=== PATIENT | male | born 1960 | race Two or more races ===

== ENCOUNTER 2016-10-10 09:48 | Inpatient (IN) | payer OTHER ==
[~2016-10-10] VITALS: Ht 170.2 cm; Wt 93.0 kg
[2016-10-10] VITALS (13 sets, daily range): BP systolic 111–149; BP diastolic 73–93; PULSE 56–70; RESP 12–26; Ht 170.2 cm; Wt 93.0 kg
[~2016-10-10 09:48] MED LIST: BUPIVACAINE 0.25% (MPF) 30 ML INJ INJ ONE; SUCCINYLCHOLINE CHLORIDE 100 MG/5 ML SYG IV ONE
[2016-10-10] MEDS ORDERED: CEFAZOLIN 2 GM/50 ML (PMX) 50 ML IVPB ONE (10:30)
[2016-10-10] MEDS ORDERED: SOD CHLORIDE 0.9% 1,000 ML IV ONE (10:30)
[2016-10-10] MEDS ORDERED: ASC500 PO (12:08)
[2016-10-10] MEDS ORDERED: AZAT50TA24 PO (12:08)
[2016-10-10] MEDS ORDERED: [UNRECOGNIZED DRUG - CODE] PO (12:08)
[2016-10-10] MEDS ORDERED: BALSALAZIDE PO (12:08)
[2016-10-10] MEDS ORDERED: BUDE9TAB PO (12:08)
[2016-10-10] MEDS ORDERED: LOSA50TA6 PO (12:08)
[2016-10-10] MEDS ORDERED: ATOR40TA68 PO (12:08)
[2016-10-10] MEDS ORDERED: PRED5 PO (12:08)
[2016-10-10] MEDS ORDERED: FENTAnyl 50 MCG/ML VIAL ONE (13:47)
[2016-10-10] MEDS ORDERED: PROPOFOL 20 ML ONE (14:06)
[2016-10-10] MEDS ORDERED: BUPIVACAINE 0.25% (MPF) 30 ML INJ ONE (14:06)
[2016-10-10] MEDS ORDERED: NEOSTIGMINE 3 MG/3 ML SYRINGE ONE (14:06)
[2016-10-10] MEDS ORDERED: ROCURONIUM 50 MG INJ ONE (14:06)
[2016-10-10] MEDS ORDERED: GLYCOPYRROLATE 0.4 MG INJ ONE (14:06)
[2016-10-10] MEDS ORDERED: CEFAZOLIN 1 GM INJ ONE (14:06)
[2016-10-10] MEDS ORDERED: LIDOCAINE 2% (SDV) 5 ML INJ ONE (14:06)
[2016-10-10] MEDS ORDERED: ONDANSETRON 4 MG INJ IV PRN ×2 (14:30→23:30)
[2016-10-10] MEDS ORDERED: MEPERIDINE 25 MG INJ IV PRN (14:30)
[2016-10-10] MEDS ORDERED: DIPHENHYDRAMINE 50 MG INJ IV PRN (14:30)
[2016-10-10] MEDS ORDERED: METOCLOPRAMIDE 10 MG INJ IV PRN (14:30)
[2016-10-10] MEDS ORDERED: FENTAnyl 50 MCG/ML VIAL IV PRN (14:30)
[2016-10-10] MEDS ORDERED: HYDROmorphONE (0.2 MG/ML) 10ML SYG IV PRN ×2 (14:30)
[2016-10-10] MEDS ORDERED: SUGAMMADEX SODIUM 200 MG/2 ML VIAL IV ONE (14:50)
--- NOTE | 2016-10-10 14:58 | OPR ---
Date/Time of Note Date/Time of Note DATE: 10/10/16 TIME: 14:52 Operative Report Procedure Date: Oct 10, 2016 Preoperative Diagnosis grade III internal hemorrhoids and external hemorrhoids Postoperative Diagnosis same Operation Performed 1. proctoplasty for prolapse of mucosal membrane cpt code 91382 2. ligation of internal hemorrhoids multiple procedures cpt code 97961 3. rigid sigmoidoscopy Surgeon: Sarah JOYCE Anesthesia Type: general Estimated Blood Loss: 10 - 50 ml's Specimen: none Grafts/Implants: none Complications: no Indications This is a 56-year-old male with internal/external hemorrhoids. There is symptomatic and cause bleeding and the patient wants surgical repair. Risks alternatives benefits and percent were discussed the patient. Patient's best understanding and consents to the operation. Procedure Description Patient taken to the OR and prepped and draped in usual sterile fashion. Surgical timeout was performed IV antibiotics are given. Rigid proctoscopy performed. There is no evidence of any masses or lesions. Prep was poor. Tissue device is inserted central under ultrasound guidance. Ligation of multiple internal hemorrhoidal arteries were performed in multiple quadrants. This is performed in a [id number] fashion with 2-0 Vicryl. This is performed all the way around circumferentially identifying areas with the hemorrhoidal artery. After the [id number] 2-0 Vicryl the mucosal proctoplasty was performed by running 2-0 Vicryl distally in a longitudinal fashion all the way down to the dentate line. This is then tied to the proximal and and retracted this performed the proctoplasty. This is performed in multiple quadrants all around circumferentially. There is good hemostasis. Therapeutic subcutaneous Marcaine is injected all around the mucosal layer. Dry dressings were applied. Sarah JOYCE Oct 10, 2016 14:58
[2016-10-10] MEDS ORDERED: HYDROCODONE/APAP (5/325) TAB PO ONE (15:00)
[2016-10-10] MEDS: FENTAnyl 50 MCG/ML VIAL IV PRN ×4 (15:09→15:32)
[2016-10-10] MEDS ORDERED: ACETAMINOPHEN 325 MG TAB PO PRN (19:30)
[2016-10-10] MEDS ORDERED: ZOLPIDEM 5 MG TAB PO PRN (19:30)
--- NOTE | 2016-10-10 19:35 | RADRPT ---
Vent Rate: 57 bpm RR Interval: 0 msec SC Interval: 158 msec QRS Duration: 78 msec QT Interval: 408 msec QTC Interval: 397 msec P-R-T Holcomb: 55 - 0 - 29 degrees Sinus bradycardia Otherwise normal ECG Electronically Signed By: Sal Ruiz [id number]
[2016-10-10] MEDS: morphine 2 MG INJ IV PRN (19:54)
[2016-10-10] MEDS: DOCUSATE SODIUM 100 MG CAP PO SCH (20:08)
[2016-10-10] MEDS: HYDROCODONE/APAP (5/325) TAB PO PRN (22:25)
[2016-10-11] MEDS: morphine 2 MG INJ IV PRN ×5 (01:24→14:53)
[2016-10-11] MEDS: HYDROCODONE/APAP (5/325) TAB PO PRN ×3 (02:47→18:09)
[2016-10-11 04:10] VITALS: BP 118/77; RESP 16
[2016-10-11 06:12] LABS: BASOPHILS % 0.3 % (0.0-2.0); EOSINOPHILS % 0.3 % (0.0-7.0); HEMATOCRIT 39.6 % (42.0-52.0); HEMOGLOBIN 12.8 g/dl (14.0-18.0); LYMPHOCYTES # 1.4 10^3/ul (0.8-2.9); LYMPHOCYTES % 14.7 % (15.0-51.0); MEAN CORPUSCULAR HEMOGLOBIN 28.8 pg (29.0-33.0); MEAN CORPUSCULAR HGB CONC 32.3 g/dl (32.0-37.0); MEAN PLATELET VOLUME 10.1 fl (7.4-10.4); MONOCYTE # 0.9 10^3/ul (0.3-0.9); MONOCYTES % 9.1 % (0.0-11.0); NEUTROPHILS % 75.2 % (39.0-77.0); PLATELET COUNT 214 10^3/UL (140-415); RED BLOOD COUNT 4.45 10^6/ul (4.70-6.10); WHITE BLOOD COUNT 9.8 10^3/ul (4.8-10.8)
[2016-10-11 06:21] LABS: ALBUMIN/GLOBULIN RATIO 1.29; BILIRUBIN,INDIRECT 0.6 mg/dl (0-1.1); BILIRUBIN,TOTAL 0.6 mg/dl (0.2-1.3); CALCIUM 9.1 mg/dl (8.4-10.2); CREATININE 0.83 mg/dl (0.61-1.24); POTASSIUM 4.3 mmol/L (3.5-5.1); TOTAL PROTEIN 7.1 g/dl (6.1-8.1)
[2016-10-11 08:05] VITALS: BP 120/77; RESP 16
--- NOTE | 2016-10-11 08:08 | HP ---
DATE OF ADMISSION: 10/10/2016 HISTORY OF PRESENT ILLNESS: The patient is a 56-year-old gentleman history of hypertension, dyslipidemia, ulcerative colitis and both internal and external hemorrhoids. The patient has history of recurrent rectal bleed. The patient was brought into the hospital today and underwent proctoplasty for prolapse of mucosal membrane, as well as ligation of internal hemorrhoids. The patient postoperatively had significant pain and also has urinary retention; therefore, patient is being admitted for further management and evaluation. The patient denies any history of chest pain. No headache, dizziness, syncope. No history of fever or chills. No history of any joint pain, or acute skin rash. The rest of the systems were unremarkable. PAST SURGICAL HISTORY: Status post hernia repair and also left knee meniscal repair. ALLERGIES: NONE. SOCIAL HISTORY: Noncontributory. FAMILY HISTORY: Noncontributory. PHYSICAL EXAMINATION: GENERAL APPEARANCE: Patient, conscious, awake, alert, fairly oriented. VITAL SIGNS: Temperature 97.2, pulse 59, respirations 16, blood pressure 117/73, O2 sat 95 on room air. HEENT: Conjunctivae normal. Oropharynx clear. NECK: Supple. No masses or thyromegaly. CHEST: Fairly clear. CVS: S1, S2 Normal. No murmur. ABDOMEN: Soft, nontender. EXTREMITIES: No leg edema. Pedal pulses palpable. SKIN: Without acute rash. NEUROLOGIC: The patient is awake, alert, fairly oriented, with no gross focal deficits. IMPRESSION: 1. Symptomatic external and internal hemorrhoids, status post surgery. 2. Hypertension. 3. Ulcerative colitis. 4. Dyslipidemia. PLAN: Patient admitted on medical floor. Patient will be started on IV fluids, Colace, Thida, Tylenol, and IV morphine for pain control. Patient's last blood pressure was only 117/73. We will hold off on his oral medication. Patient will have a bladder ultrasound and if patient has urinary retention, he will undergo in and out. Reconciled medication list, do not match with what the patient is reporting he takes. For now I will just monitor him with symptomatic treatment and if patient does well, he will be discharged home tomorrow. We will do a CBC and complete metabolic panel, tomorrow. If patient gets recurrent urinary tension, then we will also obtain a urology consultation. Dictated By: Agustin Mcknight MD /yari/nick /Document#: [id number]
[2016-10-11] MEDS: DOCUSATE SODIUM 100 MG CAP PO SCH ×2 (09:35→20:38)
[2016-10-11 14:38] VITALS: BP 109/66; RESP 18
--- NOTE | 2016-10-11 16:34 | PN ---
Date/Time of Note Date/Time of Note DATE: 10/11/16 TIME: 16:32 Assessment/Plan VTE Prophylaxis VTE Prophylaxis Intervention: SCD's Lines/Catheters IV Catheter Type (from Nrsg): Saline Lock Urinary Cath still in place: Yes Reason Cath still needed: urinary retention Assessment/Plan Chief Complaint/Hosp Course s/p hemorrhoid surgery with THD with urinary retention and pain Problems: Assessment/Plan pain with urinary retention pain management Subjective 24 Hr Interval Summary Free Text/Dictation pain after surgery with dysuria and urinary retention diggs placed Exam/Review of Systems Vital Signs Vitals Vital Signs Date Time Temp Pulse Resp B/P Pulse Ox O2 Delivery O2 Flow Rate FiO2 10/11/16 14:38 98.4 67 18 109/66 97 10/10/16 15:54 Room Air 10/10/16 15:26 2.0 Intake and Output 10/10/16 10/10/16 10/11/16 15:00 23:00 07:00 Intake Total 1000 ml 840 ml Output Total 5 ml 700 ml Balance 995 ml 140 ml Exam nonspecific anal exam deferred Results Result Diagram: 10/11/16 0530 10/11/16 0536 Results 24 hrs Laboratory Tests Test 10/11/16 05:30 10/11/16 05:36 White Blood Count 9.8 Red Blood Count 4.45 L Hemoglobin 12.8 L Hematocrit 39.6 L Mean Corpuscular Volume 89.0 Mean Corpuscular Hemoglobin 28.8 L Mean Corpuscular Hemoglobin Concent 32.3 Red Cell Distribution Width 14.0 Platelet Count 214 Mean Platelet Volume 10.1 Neutrophils % 75.2 Lymphocytes % 14.7 L Monocytes % 9.1 Eosinophils % 0.3 Basophils % 0.3 Nucleated Red Blood Cells % 0.0 Neutrophils # (Manual) 7.4 Lymphocytes # 1.4 Monocytes # 0.9 Eosinophils # 0.0 Basophils # 0.0 Nucleated Red Blood Cells # 0.0 Sodium Level 140 Potassium Level 4.3 Chloride Level 100 Carbon Dioxide Level 28 Anion Gap 16 Blood Urea Nitrogen 17 Creatinine 0.83 Glucose Level 102 Calcium Level 9.1 Total Bilirubin 0.6 Direct Bilirubin 0.00 Indirect Bilirubin 0.6 Aspartate Amino Transf (AST/SGOT) 26 Alanine Aminotransferase (ALT/SGPT) 32 Alkaline Phosphatase 36 L Total Protein 7.1 Albumin 4.0 Globulin 3.10 Albumin/Globulin Ratio 1.29 Medications Medications Current Medications Acetaminophen (Tylenol Tab) 650 mg Q4H PRN PO PAIN AND OR ELEVATED TEMP; Start 10/10/16 at 19:30 Acetaminophen/ Hydrocodone Bitart ([place] (5/325)) 1 tab Q4H PRN PO MODERATE PAIN LEVEL 4-6 Last administered on 10/11/16 10:49; Admin Dose 1 TAB; Start at 19:30 Zolpidem Tartrate (Ambien) 5 mg HS PRN PO INSOMNIA Last administered on 02:47; Admin Dose 5 MG; Start 10/10/16 at 19:30 Docusate Sodium (Colace) 200 mg BID PO Last administered on 10/11/16 09:35; Admin Dose 200 MG; Start 10/10/16 at 21:00 Ondansetron HCl (Zofran Inj) 4 mg Q6H PRN IV NAUSEA AND/OR VOMITING; Start at 23:30 Morphine Sulfate (morphine) 2 mg Q2 PRN IV SEVERE PAIN LEVEL 7-10 Last administered on 10/11/16 14:53; Admin Dose 2 MG; Start 10/11/16 at 03:25 Sarah JOYCE Oct 11, 2016 16:34
[2016-10-11] MEDS: HYDROmorphONE 1 MG/ML SYG IV PRN (17:07)
[2016-10-11 19:35] VITALS: BP 123/70; RESP 16
[2016-10-11] MEDS: LIDOCAINE 5% 35 GM OINT TOP PRN (20:40)
[2016-10-12] MEDS: HYDROmorphONE 1 MG/ML SYG IV PRN ×5 (00:56→20:47)
[2016-10-12 02:06] VITALS: BP 114/77; RESP 16
[2016-10-12] MEDS: HYDROCODONE/APAP (5/325) TAB PO PRN ×4 (03:25→19:02)
[2016-10-12 08:00] VITALS: BP 114/74; RESP 21
[2016-10-12] MEDS: DOCUSATE SODIUM 100 MG CAP PO SCH ×2 (08:55→20:46)
[2016-10-12] MEDS: LIDOCAINE 5% 35 GM OINT TOP PRN (08:55)
[2016-10-12 14:00] VITALS: BP 112/70; RESP 21
--- NOTE | 2016-10-12 14:41 | PN ---
Date/Time of Note Date/Time of Note DATE: 10/12/16 TIME: 14:40 Assessment/Plan VTE Prophylaxis VTE Prophylaxis Intervention: SCD's Lines/Catheters IV Catheter Type (from Nrsg): Saline Lock Urinary Cath still in place: No Assessment/Plan Chief Complaint/Hosp Course s/p hemorrhoid surgery with THD with urinary retention and pain Problems: Assessment/Plan doing a little better diggs removed and able to urinate if pain control adequate ok to dc home Subjective 24 Hr Interval Summary Free Text/Dictation doing a little better, diggs removed and able to urinate Exam/Review of Systems Vital Signs Vitals Vital Signs Date Time Temp Pulse Resp B/P Pulse Ox O2 Delivery O2 Flow Rate FiO2 10/12/16 08:00 98.1 100 21 114/74 97 10/10/16 15:54 Room Air 10/10/16 15:26 2.0 Intake and Output 10/11/16 10/11/16 10/12/16 15:00 23:00 07:00 Intake Total 900 ml 850 ml Output Total 2500 ml 2200 ml Balance -1600 ml -1350 ml Exam deferred rectal nonspecific exam Results Result Diagram: 10/11/16 0530 10/11/16 0536 Medications Medications Current Medications Acetaminophen (Tylenol Tab) 650 mg Q4H PRN PO PAIN AND OR ELEVATED TEMP Last administered on 10/11/16 20:38; Admin Dose 650 MG; Start 10/10/16 at 19:30 Acetaminophen/ Hydrocodone Bitart ([place] (5/325)) 1 tab Q4H PRN PO MODERATE PAIN LEVEL 4-6 Last administered on 10/12/16 13:11; Admin Dose 1 TAB; Start at 19:30 Zolpidem Tartrate (Ambien) 5 mg HS PRN PO INSOMNIA Last administered on 02:47; Admin Dose 5 MG; Start 10/10/16 at 19:30 Docusate Sodium (Colace) 200 mg BID PO Last administered on 10/12/16 08:55; Admin Dose 200 MG; Start 10/10/16 at 21:00 Ondansetron HCl (Zofran Inj) 4 mg Q6H PRN IV NAUSEA AND/OR VOMITING; Start at 23:30 Morphine Sulfate (morphine) 2 mg Q2 PRN IV SEVERE PAIN LEVEL 7-10 Last administered on 10/11/16 14:53; Admin Dose 2 MG; Start 10/11/16 at 03:25 Hydromorphone HCl (Dilaudid) 0.5 mg Q2H PRN IV PAIN Last administered on 12:11; Admin Dose 0.5 MG; Start 10/11/16 at 16:30 Lidocaine (Lidocaine 5% Oint) 1 applic TID PRN TOP PAIN Last administered on 08:55; Admin Dose 1 APPLIC; Start 10/11/16 at 17:00 Sarah JOYCE Oct 12, 2016 14:41
--- NOTE | 2016-10-12 17:16 | PN ---
Date/Time of Note Date/Time of Note DATE: 10/12/16 TIME: 17:12 Assessment/Plan VTE Prophylaxis VTE Prophylaxis Intervention: SCD's Lines/Catheters [facility] Saline Lock Urinary Cath still in place: No Assessment/Plan Chief Complaint/Hosp Course Patient continues to have significant amount of pain requiring Dilaudid. Vick catheter was discontinued however patient is unable to void, currently catheter was being reinserted, blood-tinged urine noted in the catheter bag. Problems: Assessment/Plan - Symptomatic external and internal hemorrhoids, status post surgery by Dr. Brambila. - Postoperative urinary retention, continue Vick catheter, start Urecholine. Dr. Alberto is asked to see patient in urology consultation. - Hypertension. - Ulcerative colitis. - Dyslipidemia. Further recommendations based on clinical course. Plan of care discussed with Dr. Mcknight. Exam/Review of Systems Vital Signs Vitals Vital Signs Date Time Temp Pulse Resp B/P Pulse Ox O2 Delivery O2 Flow Rate FiO2 10/12/16 08:00 98.1 100 21 114/74 97 10/10/16 15:54 Room Air 10/10/16 15:26 2.0 Intake and Output 10/11/16 10/11/16 10/12/16 15:00 23:00 07:00 Intake Total 900 ml 850 ml Output Total 2500 ml 2200 ml Balance -1600 ml -1350 ml Exam Constitutional: alert Head: normocephalic Neck: supple Respiratory: normal air movement Cardiovascular: nl pulses Gastrointestinal: soft Genitourinary - Male: other (Vick catheter) Extremities: normal pulses Neurological: nl mental status Results Result Diagram: 10/11/16 0530 10/11/16 0536 Medications Medications Current Medications Acetaminophen (Tylenol Tab) 650 mg Q4H PRN PO PAIN AND OR ELEVATED TEMP Last administered on 10/11/16 20:38; Admin Dose 650 MG; Start 10/10/16 at 19:30 Acetaminophen/ Hydrocodone Bitart ([place] (5/325)) 1 tab Q4H PRN PO MODERATE PAIN LEVEL 4-6 Last administered on 10/12/16 13:11; Admin Dose 1 TAB; Start at 19:30 Zolpidem Tartrate (Ambien) 5 mg HS PRN PO INSOMNIA Last administered on 02:47; Admin Dose 5 MG; Start 10/10/16 at 19:30 Docusate Sodium (Colace) 200 mg BID PO Last administered on 10/12/16 08:55; Admin Dose 200 MG; Start 10/10/16 at 21:00 Ondansetron HCl (Zofran Inj) 4 mg Q6H PRN IV NAUSEA AND/OR VOMITING; Start at 23:30 Morphine Sulfate (morphine) 2 mg Q2 PRN IV SEVERE PAIN LEVEL 7-10 Last administered on 10/11/16 14:53; Admin Dose 2 MG; Start 10/11/16 at 03:25 Hydromorphone HCl (Dilaudid) 0.5 mg Q2H PRN IV PAIN Last administered on 16:43; Admin Dose 0.5 MG; Start 10/11/16 at 16:30 Lidocaine (Lidocaine 5% Oint) 1 applic TID PRN TOP PAIN Last administered on 08:55; Admin Dose 1 APPLIC; Start 10/11/16 at 17:00 JACKIE BAE Oct 12, 2016 17:16
--- NOTE | 2016-10-12 19:54 | CONS ---
Date/Time of Note Date/Time of Note DATE: 10/12/16 TIME: 19:43 Assessment/Plan Assessment/Plan Chief Complaint/Hosp Course Urinary retention postsurgery for hemorrhoids. The retention is secondary to him having pain and not being able to relax to urinate. Also the pain medications may not be helpful as well but he needs to take them. We will try him on Urecholine as well as Flomax and will discontinue the Vick catheter in a.m., check his postvoid residual after each voiding and do straight cath for a PVR of over 300 mL or if he does not urinate for a bladder scan over 500 ml. Problems: Consultation Date/Type/Reason Admit Date/Time Oct 12, 2016 at 16:56 Date of Consultation: Oct 12, 2016 Type of Consultation: Urology Reason for Consultation Urinary retention post hemorrhoidal surgery Referring Provider: LAITH WARREN MD Hx of Present Illness 56-year-old male admitted to the hospital after undergoing hemorrhoidal surgery. The patient was not able to urinate and was having a lot of pain. Prior to his surgery patient denies having any problem urinating , he usually has nocturia 3-4 times a night , during the day he urinates 4-5 times, he describes his urinary stream as regular. Denies any history of gross hematuria he did have an indwelling catheter and when it was removed he was not able to urinate and a new Vick catheter was inserted. Patient states that he has not slept in the past 3 days because of the pain and he is laying on his side most of the time. Constitutional: no complaints Eyes: no complaints ENT: no complaints Respiratory: no complaints Cardiovascular: no complaints Gastrointestinal: other (History of ulcerative colitis) Genitourinary: other (Urinary retention) Musculoskeletal: no complaints Skin: no complaints Neurologic: no complaints Endocrine: no complaints Lymphatic: no complaints Psychological: no complaints Past Medical History Medical History: high cholesterol, hypertension, other (Ulcerative colitis) Past Surgical History Past Surgical Hx: other (Umbilical hernia repair, hemorrhoid surgery) Family History Significant Family History: no pertinent family hx Social History Alcohol Use: other (He drinks 1 scotch with soda 5 times a week) Smoking Status: Never smoker Drug Use: none Exam/Review of Systems Vital Signs Vitals Vital Signs Date Time Temp Pulse Resp B/P Pulse Ox O2 Delivery O2 Flow Rate FiO2 10/12/16 08:00 98.1 100 21 114/74 97 10/10/16 15:54 Room Air 10/10/16 15:26 2.0 Intake and Output 10/11/16 10/11/16 10/12/16 15:00 23:00 07:00 Intake Total 900 ml 850 ml Output Total 2500 ml 2200 ml Balance -1600 ml -1350 ml Exam Constitutional: alert, oriented Psych: no complaints Head: normocephalic Eyes: nl conjunctiva ENMT: nl external ears & nose Neck: non-tender, supple Respiratory: normal air movement Cardiovascular: nl pulses Gastrointestinal: soft Genitourinary - Male: other (Vick catheter in place and draining clear urine, no rectal exam done because of his recent hemorrhoidal surgery) Musculoskeletal: nl extremities to inspection Extremities: No calf tenderness Results Result Diagram: 10/11/16 0530 10/11/16 0536 Medications Medications Current Medications Acetaminophen (Tylenol Tab) 650 mg Q4H PRN PO PAIN AND OR ELEVATED TEMP Last administered on 10/11/16 20:38; Admin Dose 650 MG; Start 10/10/16 at 19:30 Acetaminophen/ Hydrocodone Bitart ([place] (5/325)) 1 tab Q4H PRN PO MODERATE PAIN LEVEL 4-6 Last administered on 10/12/16 19:02; Admin Dose 1 TAB; Start at 19:30 Zolpidem Tartrate (Ambien) 5 mg HS PRN PO INSOMNIA Last administered on 02:47; Admin Dose 5 MG; Start 10/10/16 at 19:30 Docusate Sodium (Colace) 200 mg BID PO Last administered on 10/12/16 08:55; Admin Dose 200 MG; Start 10/10/16 at 21:00 Ondansetron HCl (Zofran Inj) 4 mg Q6H PRN IV NAUSEA AND/OR VOMITING; Start at 23:30 Morphine Sulfate (morphine) 2 mg Q2 PRN IV SEVERE PAIN LEVEL 7-10 Last administered on 10/11/16 14:53; Admin Dose 2 MG; Start 10/11/16 at 03:25 Hydromorphone HCl (Dilaudid) 0.5 mg Q2H PRN IV PAIN Last administered on 8/16/ 17at 16:43; Admin Dose 0.5 MG; Start 10/11/16 at 16:30 Lidocaine (Lidocaine 5% Oint) 1 applic TID PRN TOP PAIN Last administered on t 08:55; Admin Dose 1 APPLIC; Start 10/11/16 at 17:00 Bethanechol Chloride (Urecholine) 10 mg TID PO ; Start 10/12/16 at 21:00 CLAUDIA MCBRIDE MD Oct 12, 2016 19:54
[2016-10-12 20:00] VITALS: BP 107/67; RESP 19
[2016-10-12] MEDS: BETHANECHOL 10 MG TAB PO SCH (20:46)
[2016-10-12] MEDS: TAMSULOSIN (SR) 0.4 MG CAP PO SCH (20:46)
[2016-10-13] MEDS: LIDOCAINE 5% 35 GM OINT TOP PRN ×3 (00:19→18:07)
[2016-10-13 02:00] VITALS: BP 108/73; RESP 20
[2016-10-13] MEDS: HYDROmorphONE 1 MG/ML SYG IV PRN ×5 (02:59→23:58)
[2016-10-13] MEDS: HYDROCODONE/APAP (5/325) TAB PO PRN ×3 (06:35→21:49)
[2016-10-13 07:01] LABS: BASOPHILS % 0.3 % (0.0-2.0); EOSINOPHILS # 0.2 10^3/ul (0.0-0.5); HEMATOCRIT 42.9 % (42.0-52.0); LYMPHOCYTES # 1.7 10^3/ul (0.8-2.9); LYMPHOCYTES % 18.7 % (15.0-51.0); MEAN CORPUSCULAR HGB CONC 32.6 g/dl (32.0-37.0); MEAN CORPUSCULAR VOLUME 88.8 fl (82.0-101.0); MEAN PLATELET VOLUME 10.2 fl (7.4-10.4); MONOCYTE # 0.7 10^3/ul (0.3-0.9); MONOCYTES % 8.4 % (0.0-11.0); NEUTROPHILS % 70.1 % (39.0-77.0); PLATELET COUNT 241 10^3/UL (140-415); RED BLOOD COUNT 4.83 10^6/ul (4.70-6.10); RED CELL DISTRIBUTION WIDTH 13.6 % (11.5-14.5); WHITE BLOOD COUNT 8.8 10^3/ul (4.8-10.8)
[2016-10-13 07:24] LABS: CALCIUM 9.5 mg/dl (8.4-10.2); CREATININE 0.91 mg/dl (0.61-1.24); POTASSIUM 4.1 mmol/L (3.5-5.1)
[2016-10-13 08:09] VITALS: BP 117/67; RESP 20
--- NOTE | 2016-10-13 10:05 | PN ---
Date/Time of Note Date/Time of Note DATE: 10/13/16 TIME: 10:02 Assessment/Plan VTE Prophylaxis VTE Prophylaxis Intervention: SCD's Lines/Catheters IV Catheter Type (from Nrsg): Saline Lock Urinary Cath still in place: No Assessment/Plan Chief Complaint/Hosp Course s/p hemorrhoid surgery with THD with urinary retention and pain Problems: Assessment/Plan urology involved defer to urology for management patient with pain suggest dc with leg bag and removal of diggs in the OR Subjective 24 Hr Interval Summary Free Text/Dictation patient with some urinary retention and pain urology is involved Exam/Review of Systems Vital Signs Vitals Vital Signs Date Time Temp Pulse Resp B/P Pulse Ox O2 Delivery O2 Flow Rate FiO2 10/13/16 08:09 98.9 75 20 117/67 97 10/10/16 15:54 Room Air 10/10/16 15:26 2.0 Intake and Output 10/12/16 10/12/16 10/13/16 15:00 23:00 07:00 Intake Total 1480 ml 1300 ml Output Total 2700 ml 1800 ml Balance -1220 ml -500 ml Results Result Diagram: 10/13/16 0518 10/13/16 0518 Results 24 hrs Laboratory Tests Test 10/13/16 05:18 White Blood Count 8.8 Red Blood Count 4.83 Hemoglobin 14.0 Hematocrit 42.9 Mean Corpuscular Volume 88.8 Mean Corpuscular Hemoglobin 29.0 Mean Corpuscular Hemoglobin Concent 32.6 Red Cell Distribution Width 13.6 Platelet Count 241 Mean Platelet Volume 10.2 Neutrophils % 70.1 Lymphocytes % 18.7 Monocytes % 8.4 Eosinophils % 2.0 Basophils % 0.3 Nucleated Red Blood Cells % 0.0 Neutrophils # (Manual) 6.2 Lymphocytes # 1.7 Monocytes # 0.7 Eosinophils # 0.2 Basophils # 0.0 Nucleated Red Blood Cells # 0.0 Sodium Level 139 Potassium Level 4.1 Chloride Level 97 Carbon Dioxide Level 31 Anion Gap 15 Blood Urea Nitrogen 14 Creatinine 0.91 Glucose Level 102 Calcium Level 9.5 Medications Medications Current Medications Acetaminophen (Tylenol Tab) 650 mg Q4H PRN PO PAIN AND OR ELEVATED TEMP Last administered on 10/11/16t 20:38; Admin Dose 650 MG; Start 10/10/16 at 19:30 Acetaminophen/ Hydrocodone Bitart ([place] (5/325)) 1 tab Q4H PRN PO MODERATE PAIN LEVEL 4-6 Last administered on 10/13/16 06:35; Admin Dose 1 TAB; Start at 19:30 Zolpidem Tartrate (Ambien) 5 mg HS PRN PO INSOMNIA Last administered on 02:47; Admin Dose 5 MG; Start 10/10/16 at 19:30 Docusate Sodium (Colace) 200 mg BID PO Last administered on 10/12/16 20:46; Admin Dose 200 MG; Start 10/10/16 at 21:00 Ondansetron HCl (Zofran Inj) 4 mg Q6H PRN IV NAUSEA AND/OR VOMITING; Start at 23:30 Morphine Sulfate (morphine) 2 mg Q2 PRN IV SEVERE PAIN LEVEL 7-10 Last administered on 10/11/16 14:53; Admin Dose 2 MG; Start 10/11/16 at 03:25 Hydromorphone HCl (Dilaudid) 0.5 mg Q2H PRN IV PAIN Last administered on 02:59; Admin Dose 0.5 MG; Start 10/11/16 at 16:30 Lidocaine (Lidocaine 5% Oint) 1 applic TID PRN TOP PAIN Last administered on 00:19; Admin Dose 1 APPLIC; Start 10/11/16 at 17:00 Bethanechol Chloride (Urecholine) 10 mg TID PO Last administered on 10/12/16 20:46; Admin Dose 10 MG; Start 10/12/16 at 21:00 Tamsulosin HCl (Flomax) 0.4 mg BID PO Last administered on 10/12/16 20:46; Admin Dose 0.4 MG; Start 10/12/16 at 21:00 Sarah JOYCE Oct 13, 2016 10:05
--- NOTE | 2016-10-13 10:16 | PN ---
Date/Time of Note Date/Time of Note DATE: 10/13/16 TIME: 10:07 Assessment/Plan VTE Prophylaxis VTE Prophylaxis Intervention: ambulation, SCD's Lines/Catheters [facility] Saline Lock Urinary Cath still in place: No Assessment/Plan Assessment/Plan 56-year-old male with: 1. Symptomatic external and internal hemorrhoids, status post surgery hemorrhoidectomy by Dr. Brambila, POD#3 Patient doing well postsurgically however having urinary retention followed by urology According to Dr. Brambila, from general surgery standpoint patient can be discharged whenever cleared by urology. 2. Postoperative urinary retention, appreciate recommendations from Dr. Alberto , patient on Flomax and Urecholine. This morning still with ongoing urinary retention, Vick was discontinued 4 hours ago. Follow-up urology recommendation. Patient may be discharged home once he urinates versus being discharged with Vick and leg bag if okay with urology. 4. Ulcerative colitis: Resume home meds at discharge. 5. Dyslipidemia: Resume home meds at discharge 6. Hypertension: Resume losartan at discharge if needed.. Prophylaxis: Patient ambulatory, tolerating p.o. Disposition: Discharge planning depending on neurology recommendations today. Patient may need to go home with a Vick catheter Subjective 24 Hr Interval Summary Free Text/Dictation Patient reports controlled pain, however still having suprapubic tenderness and distention, Vick catheter removed this morning patient has not urinated yet. Urology was consulted overnight. According to records he did have a bowel movement Discussed with Dr. Brambila, from his standpoint patient can be discharged home with or without a Vick with a leg bag depending if he urinates or not and if urology agrees. Exam/Review of Systems Vital Signs Vitals Vital Signs Date Time Temp Pulse Resp B/P Pulse Ox O2 Delivery O2 Flow Rate FiO2 10/13/16 08:09 98.9 75 20 117/67 97 10/10/16 15:54 Room Air 10/10/16 15:26 2.0 Intake and Output 10/12/16 10/12/16 10/13/16 15:00 23:00 07:00 Intake Total 1480 ml 1300 ml Output Total 2700 ml 1800 ml Balance -1220 ml -500 ml Exam Constitutional: alert, oriented, well developed Respiratory: clear to auscultation, normal air movement Cardiovascular: nl pulses, regular rate and rhythm Gastrointestinal: distended (Mildly), soft, tender (Lower abdomen and rectal area) Genitourinary - Male: other (Urinary retention) 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 OFFICER II-XII intact, nl mental status, nl speech, nl strength Results Result Diagram: 10/13/1651710/13/16517 Results 24 hrs Laboratory Tests Test 10/13/16 05:18 White Blood Count 8.8 Red Blood Count 4.83 Hemoglobin 14.0 Hematocrit 42.9 Mean Corpuscular Volume 88.8 Mean Corpuscular Hemoglobin 29.0 Mean Corpuscular Hemoglobin Concent 32.6 Red Cell Distribution Width 13.6 Platelet Count 241 Mean Platelet Volume 10.2 Neutrophils % 70.1 Lymphocytes % 18.7 Monocytes % 8.4 Eosinophils % 2.0 Basophils % 0.3 Nucleated Red Blood Cells % 0.0 Neutrophils # (Manual) 6.2 Lymphocytes # 1.7 Monocytes # 0.7 Eosinophils # 0.2 Basophils # 0.0 Nucleated Red Blood Cells # 0.0 Sodium Level 139 Potassium Level 4.1 Chloride Level 97 Carbon Dioxide Level 31 Anion Gap 15 Blood Urea Nitrogen 14 Creatinine 0.91 Glucose Level 102 Calcium Level 9.5 Medications Medications Current Medications Acetaminophen (Tylenol Tab) 650 mg Q4H PRN PO PAIN AND OR ELEVATED TEMP Last administered on 10/11/16 20:38; Admin Dose 650 MG; Start 10/10/16 at 19:30 Acetaminophen/ Hydrocodone Bitart ([place] (5/325)) 1 tab Q4H PRN PO MODERATE PAIN LEVEL 4-6 Last administered on 10/13/16 06:35; Admin Dose 1 TAB; Start at 19:30 Zolpidem Tartrate (Ambien) 5 mg HS PRN PO INSOMNIA Last administered on 02:47; Admin Dose 5 MG; Start 10/10/16 at 19:30 Docusate Sodium (Colace) 200 mg BID PO Last administered on 10/12/16 20:46; Admin Dose 200 MG; Start 10/10/16 at 21:00 Ondansetron HCl (Zofran Inj) 4 mg Q6H PRN IV NAUSEA AND/OR VOMITING; Start at 23:30 Morphine Sulfate (morphine) 2 mg Q2 PRN IV SEVERE PAIN LEVEL 7-10 Last administered on 10/11/16 14:53; Admin Dose 2 MG; Start 10/11/16 at 03:25 Hydromorphone HCl (Dilaudid) 0.5 mg Q2H PRN IV PAIN Last administered on 02:59; Admin Dose 0.5 MG; Start 10/11/16 at 16:30 Lidocaine (Lidocaine 5% Oint) 1 applic TID PRN TOP PAIN Last administered on 00:19; Admin Dose 1 APPLIC; Start 10/11/16 at 17:00 Bethanechol Chloride (Urecholine) 10 mg TID PO Last administered on 10/12/16 20:46; Admin Dose 10 MG; Start 10/12/16 at 21:00 Tamsulosin HCl (Flomax) 0.4 mg BID PO Last administered on 10/12/16 20:46; Admin Dose 0.4 MG; Start 10/12/16 at 21:00 KELVIN LEBLANC Oct 13, 2016 10:16
[2016-10-13] MEDS: DOCUSATE SODIUM 100 MG CAP PO SCH ×2 (10:33→20:18)
[2016-10-13] MEDS: BETHANECHOL 10 MG TAB PO SCH ×3 (10:33→20:18)
[2016-10-13] MEDS: TAMSULOSIN (SR) 0.4 MG CAP PO SCH ×2 (10:33→20:18)
[2016-10-13 14:30] VITALS: BP 107/67; RESP 20
--- NOTE | 2016-10-13 20:10 | PN ---
Date/Time of Note Date/Time of Note DATE: 10/13/16 TIME: 20:05 Assessment/Plan VTE Prophylaxis VTE Prophylaxis Intervention: ambulation Lines/Catheters IV Catheter Type (from Nrs): Saline Lock Urinary Cath still in place: Yes Reason Cath still needed: urinary retention Assessment/Plan Chief Complaint/Hosp Course Urinary retention postsurgery for hemorrhoids. The retention is secondary to him having pain and not being able to relax to urinate. Also the pain medications may not be helpful as well but he needs to take them. We will try him on Urecholine as well as Flomax the catheter was removed this morning however he was not able to urinate and needed a new Vick catheter. Therefore I recommend that he keeps the catheter in and be discharged home with the Vick catheter and after 1 week he could have the catheter removed by either Dr. Brambila or his primary care physician or if he is referred to a urologist who is contracted with his medical group the urologist could take it out for him Problems: Subjective 24 Hr Interval Summary Constitutional: other (Patient complaining of pain from his hemorrhoid surgery and from not being able to urinate before the reinsertion of the Vick catheter) Eyes: no complaints ENT: no complaints Respiratory: no complaints Cardiovascular: no complaints Gastrointestinal: pain Genitourinary: other (Urinary retention) Musculoskeletal: no complaints Skin: no complaints Neurologic: no complaints Exam/Review of Systems Vital Signs Vitals Vital Signs Date Time Temp Pulse Resp B/P Pulse Ox O2 Delivery O2 Flow Rate FiO2 10/13/16 14:30 98.1 68 20 107/67 97 10/10/16 15:54 Room Air 10/10/16 15:26 2.0 Intake and Output 10/12/16 10/12/16 10/13/16 15:00 23:00 07:00 Intake Total 1480 ml 1300 ml Output Total 2700 ml 1800 ml Balance -1220 ml -500 ml Exam Constitutional: alert, oriented Psych: no complaints Head: normocephalic Eyes: nl conjunctiva ENMT: nl external ears & nose Neck: supple Respiratory: normal air movement Cardiovascular: No edema Gastrointestinal: soft Genitourinary - Male: other (Vick catheter in place and draining clear urine) , No CVA tenderness Extremities: normal pulses, No calf tenderness, No edema Skin: nl turgor Results Result Diagram: 10/13/1618 10/13/16 0518 Results 24 hrs Laboratory Tests Test 10/13/16 05:18 White Blood Count 8.8 Red Blood Count 4.83 Hemoglobin 14.0 Hematocrit 42.9 Mean Corpuscular Volume 88.8 Mean Corpuscular Hemoglobin 29.0 Mean Corpuscular Hemoglobin Concent 32.6 Red Cell Distribution Width 13.6 Platelet Count 241 Mean Platelet Volume 10.2 Neutrophils % 70.1 Lymphocytes % 18.7 Monocytes % 8.4 Eosinophils % 2.0 Basophils % 0.3 Nucleated Red Blood Cells % 0.0 Neutrophils # (Manual) 6.2 Lymphocytes # 1.7 Monocytes # 0.7 Eosinophils # 0.2 Basophils # 0.0 Nucleated Red Blood Cells # 0.0 Sodium Level 139 Potassium Level 4.1 Chloride Level 97 Carbon Dioxide Level 31 Anion Gap 15 Blood Urea Nitrogen 14 Creatinine 0.91 Glucose Level 102 Calcium Level 9.5 Medications Medications Current Medications Acetaminophen (Tylenol Tab) 650 mg Q4H PRN PO PAIN AND OR ELEVATED TEMP Last administered on 10/11/16 20:38; Admin Dose 650 MG; Start 10/10/16 at 19:30 Acetaminophen/ Hydrocodone Bitart ([place] (5/325)) 1 tab Q4H PRN PO MODERATE PAIN LEVEL 4-6 Last administered on 10/13/16 11:12; Admin Dose 1 TAB; Start at 19:30 Zolpidem Tartrate (Ambien) 5 mg HS PRN PO INSOMNIA Last administered on 02:47; Admin Dose 5 MG; Start 10/10/16 at 19:30 Docusate Sodium (Colace) 200 mg BID PO Last administered on 10/13/16 10:33; Admin Dose 200 MG; Start 10/10/16 at 21:00 Ondansetron HCl (Zofran Inj) 4 mg Q6H PRN IV NAUSEA AND/OR VOMITING; Start at 23:30 Morphine Sulfate (morphine) 2 mg Q2 PRN IV SEVERE PAIN LEVEL 7-10 Last administered on 10/11/16 14:53; Admin Dose 2 MG; Start 10/11/16 at 03:25 Hydromorphone HCl (Dilaudid) 0.5 mg Q2H PRN IV PAIN Last administered on 18:07; Admin Dose 0.5 MG; Start 10/11/16 at 16:30 Lidocaine (Lidocaine 5% Oint) 1 applic TID PRN TOP PAIN Last administered on 18:07; Admin Dose 1 APPLIC; Start 10/11/16 at 17:00 Bethanechol Chloride (Urecholine) 10 mg TID PO Last administered on 10/13/16 13:27; Admin Dose 10 MG; Start 10/12/16 at 21:00 Tamsulosin HCl (Flomax) 0.4 mg BID PO Last administered on 10/13/16 10:33; Admin Dose 0.4 MG; Start 10/12/16 at 21:00 CLAUDIA MCBRIDE MD Oct 13, 2016 20:10
[2016-10-13 20:30] VITALS: BP 105/66; RESP 21
[2016-10-14] MEDS: HYDROmorphONE 1 MG/ML SYG IV PRN ×3 (02:14→08:14)
[2016-10-14 02:33] VITALS: BP 128/77; RESP 22
[2016-10-14 07:20] VITALS: BP 120/81; RESP 16
[2016-10-14] MEDS: LIDOCAINE 5% 35 GM OINT TOP PRN (08:11)
[2016-10-14] MEDS: TAMSULOSIN (SR) 0.4 MG CAP PO SCH (08:14)
[2016-10-14] MEDS: BETHANECHOL 10 MG TAB PO SCH ×2 (08:16→13:27)
[2016-10-14] MEDS: DOCUSATE SODIUM 100 MG CAP PO SCH (08:18)
--- NOTE | 2016-10-14 09:46 | PN ---
Date/Time of Note Date/Time of Note DATE: 10/14/16 TIME: 09:40 Assessment/Plan VTE Prophylaxis VTE Prophylaxis Intervention: SCD's Lines/Catheters IV Catheter Type (from Nrsg): Saline Lock Urinary Cath still in place: Yes Reason Cath still needed: urinary retention Assessment/Plan Assessment/Plan 56-year-old male with: 1. Symptomatic external and internal hemorrhoids, status post surgery hemorrhoidectomy by Dr. Brambila, POD#4 Patient doing well postsurgically however having urinary retention, s/p Vick catheter and patient to go home with Vick and leg bag Follow up with Dr Romero on Monday. 2. Postoperative urinary retention, appreciate recommendations from Dr. Alberto , patient on Flomax and Urecholine and yo go home with Vick and Flomax Patient to be discharged home with Vick and leg bag 4. Ulcerative colitis: Resume home meds at discharge. 5. Dyslipidemia: Resume home meds at discharge 6. Hypertension: Resume home meds Prophylaxis: Patient ambulatory, tolerating p.o. Disposition: Discharge home with Home Health and Vick w/ leg bag and follow up with Dr Brambila nesxt week Subjective 24 Hr Interval Summary Free Text/Dictation Patient complains of perirectal pain, which is expected post hemorrhoid surgery , he was told by surgery to last at least a week. Appreciate recommendation from Dr. Suzan Burk patient will be going home with Vick catheter and a leg bag. He will follow-up with Dr. cherry next week and referred to urology outpatient also. Discharge home today with home health Exam/Review of Systems Vital Signs Vitals Vital Signs Date Time Temp Pulse Resp B/P Pulse Ox O2 Delivery O2 Flow Rate FiO2 10/14/16 07:20 98.8 74 16 120/81 96 10/10/16 15:54 Room Air 10/10/16 15:26 2.0 Intake and Output 10/13/16 10/13/16 10/14/16 15:00 23:00 07:00 Intake Total 1100 ml 1080 ml Output Total 1100 ml 2800 ml Balance 0 ml -1720 ml Exam Constitutional: alert, oriented, well developed Respiratory: clear to auscultation, normal air movement Cardiovascular: nl pulses, regular rate and rhythm Gastrointestinal: soft, tender (Perirectally post hemorrhoidectomy ) Musculoskeletal: nl extremities to inspection Extremities: normal pulses 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, nl mental status, nl speech, nl strength Results Result Diagram: 10/13/1651710/13/16517 Results 24 hrs Laboratory Tests Test 10/14/16 06:33 Lab Scanned Report REFERENCE LAB Medications Medications Current Medications Acetaminophen (Tylenol Tab) 650 mg Q4H PRN PO PAIN AND OR ELEVATED TEMP Last administered on 10/11/16 20:38; Admin Dose 650 MG; Start 10/10/16 at 19:30 Acetaminophen/ Hydrocodone Bitart ([place] (5/325)) 1 tab Q4H PRN PO MODERATE PAIN LEVEL 4-6 Last administered on 10/13/16 21:49; Admin Dose 1 TAB; Start at 19:30 Zolpidem Tartrate (Ambien) 5 mg HS PRN PO INSOMNIA Last administered on 02:47; Admin Dose 5 MG; Start 10/10/16 at 19:30 Docusate Sodium (Colace) 200 mg BID PO Last administered on 10/14/16 08:18; Admin Dose 200 MG; Start 10/10/16 at 21:00 Ondansetron HCl (Zofran Inj) 4 mg Q6H PRN IV NAUSEA AND/OR VOMITING; Start at 23:30 Morphine Sulfate (morphine) 2 mg Q2 PRN IV SEVERE PAIN LEVEL 7-10 Last administered on 10/11/16 14:53; Admin Dose 2 MG; Start 10/11/16 at 03:25 Hydromorphone HCl (Dilaudid) 0.5 mg Q2H PRN IV PAIN Last administered on 08:14; Admin Dose 0.5 MG; Start 10/11/16 at 16:30 Lidocaine (Lidocaine 5% Oint) 1 applic TID PRN TOP PAIN Last administered on 08:11; Admin Dose 1 APPLIC; Start 10/11/16 at 17:00 Bethanechol Chloride (Urecholine) 10 mg TID PO Last administered on 10/14/16 08:16; Admin Dose 10 MG; Start 10/12/16 at 21:00 Tamsulosin HCl (Flomax) 0.4 mg BID PO Last administered on 10/14/16 08:14; Admin Dose 0.4 MG; Start 10/12/16 at 21:00 KELVIN LEBLANC Oct 14, 2016 09:46
[2016-10-14] MEDS: morphine 2 MG INJ IV PRN (09:56)
--- NOTE | 2016-10-14 09:56 | PN ---
Date/Time of Note Date/Time of Note DATE: 10/14/16 TIME: 09:55 Assessment/Plan VTE Prophylaxis VTE Prophylaxis Intervention: SCD's Lines/Catheters IV Catheter Type (from Nrsg): Saline Lock Urinary Cath still in place: Yes Reason Cath still needed: urinary retention Assessment/Plan Chief Complaint/Hosp Course s/p hemorrhoid surgery with THD with urinary retention and pain Problems: Assessment/Plan dc home today with diggs leg bag and dc diggs on monday in the office Subjective 24 Hr Interval Summary Free Text/Dictation patient with diggs with some difficulty with urination Exam/Review of Systems Vital Signs Vitals Vital Signs Date Time Temp Pulse Resp B/P Pulse Ox O2 Delivery O2 Flow Rate FiO2 10/14/16 07:20 98.8 74 16 120/81 96 10/10/16 15:54 Room Air 10/10/16 15:26 2.0 Intake and Output 10/13/16 10/13/16 10/14/16 15:00 23:00 07:00 Intake Total 1100 ml 1080 ml Output Total 1100 ml 2800 ml Balance 0 ml -1720 ml Exam deferred Results Result Diagram: 10/13/1618 10/13/16 0518 Results 24 hrs Laboratory Tests Test 10/14/16 06:33 Lab Scanned Report REFERENCE LAB Medications Medications Current Medications Acetaminophen (Tylenol Tab) 650 mg Q4H PRN PO PAIN AND OR ELEVATED TEMP Last administered on 10/11/16 20:38; Admin Dose 650 MG; Start 10/10/16 at 19:30 Acetaminophen/ Hydrocodone Bitart ([place] (5/325)) 1 tab Q4H PRN PO MODERATE PAIN LEVEL 4-6 Last administered on 10/13/16 21:49; Admin Dose 1 TAB; Start at 19:30 Zolpidem Tartrate (Ambien) 5 mg HS PRN PO INSOMNIA Last administered on 02:47; Admin Dose 5 MG; Start 10/10/16 at 19:30 Docusate Sodium (Colace) 200 mg BID PO Last administered on 10/14/16 08:18; Admin Dose 200 MG; Start 10/10/16 at 21:00 Ondansetron HCl (Zofran Inj) 4 mg Q6H PRN IV NAUSEA AND/OR VOMITING; Start at 23:30 Morphine Sulfate (morphine) 2 mg Q2 PRN IV SEVERE PAIN LEVEL 7-10 Last administered on 10/11/16 14:53; Admin Dose 2 MG; Start 10/11/16 at 03:25 Hydromorphone HCl (Dilaudid) 0.5 mg Q2H PRN IV PAIN Last administered on 08:14; Admin Dose 0.5 MG; Start 10/11/16 at 16:30 Lidocaine (Lidocaine 5% Oint) 1 applic TID PRN TOP PAIN Last administered on 08:11; Admin Dose 1 APPLIC; Start 10/11/16 at 17:00 Bethanechol Chloride (Urecholine) 10 mg TID PO Last administered on 10/14/16 08:16; Admin Dose 10 MG; Start 10/12/16 at 21:00 Tamsulosin HCl (Flomax) 0.4 mg BID PO Last administered on 10/14/16 08:14; Admin Dose 0.4 MG; Start 10/12/16 at 21:00 Sarah JOYCE Oct 14, 2016 09:56
--- NOTE | 2016-10-14 10:00 | PDOCDIS ---
Discharge Instructions CONDITION Patient Condition: Stable HOME CARE INSTRUCTIONS: Diet Instructions: Regular ACTIVITY: Activity Restrictions: No Restrictions FOLLOW UP/APPOINTMENTS Follow-up Plan Follow-up with primary care physician within 1 week Follow-up with Dr. Brambila 10/18 KELVIN LEBLANC Oct 14, 2016 09:59
[2016-10-14] MEDS ORDERED: TAMS-14 PO (10:02)
[2016-10-14] MEDS ORDERED: DOCU-144 PO (10:03)
[2016-10-14] MEDS ORDERED: POLY17PO6 PO (10:03)
[2016-10-14] MEDS ORDERED: OXYC-209 PO (10:03)
[2016-10-14] MEDS ORDERED: LIDO35.415 TOP (10:04)
== END 2016-10-14 14:20 | disposition home health service (06) | DRG 348 ==
LOC: SDS 09:48 → INTOOBSV 17:14 → PP2 17:14 → OBSVTOIN 17:14 → SDS 18:45 → PP2 19:26 → OBSVTOIN 19:27 → INTOOBSV 19:27 → OBSVTOIN 10-12 16:56
PROVIDERS: ADMIT Internal Medicine; ATTEND Internal Medicine
PROC: 06LY4ZC Occlusion of Hemorrhoidal Plexus, Percutaneous Endoscopic Approach (ICD-10-PCS; 2016-10-10)
PROC: 0DBP7ZZ Excision of Rectum, Via Natural or Artificial Opening (ICD-10-PCS; 2016-10-10)
PROC: 06BY3ZC Excision of Hemorrhoidal Plexus, Percutaneous Approach (ICD-10-PCS; principal; 2016-10-10 12:30)
DX: K64.2 Third degree hemorrhoids (principal); K51.90 Ulcerative colitis, unspecified, without complications; I10 Essential (primary) hypertension; E78.5 Hyperlipidemia, unspecified; R33.9 Retention of urine, unspecified
CPT/HCPCS: 80048; 80053; 85025; 93005; G0378; A4310; J0690; J1170; J2175; J2270; J2710; J3010; J7999